=== PATIENT | male | born 1960 | race Caucasian/White ===

== ENCOUNTER 2018-03-13 17:10 | Emergency (ER) | payer OTHER, SELFPAY ==
--- NOTE | 2018-03-13 17:18 | DI.CT.S_ITS ---
PROCEDURE: CT HEAD/BRAIN WO CON INDICATIONS: Confusion. TECHNIQUE: Noncontrast 4.5 mm thick angled axial sections acquired from the foramen magnum to the vertex, with coronal and sagittal reformats. For radiation dose reduction, the following was used: automated exposure control, adjustment of mA and/or kV according to patient size. COMPARISON: None. FINDINGS: Image quality: Excellent. CSF spaces: Basal cisterns are patent. No extra-axial fluid collections. Ventricles are normal in size and shape. Brain: No midline shift. No intracranial masses or hemorrhage. Castrejon-white matter interface is normal. No vascular calcifications are noted. Skull and face: Calvarium and visualized facial bones are intact, without suspicious lesions. Sinuses: Visualized sinuses and mastoids are clear. IMPRESSION: No acute intracranial abnormality. Dictated by: Elvin De Jesus M.D. on 03/13/2018 at 19:41 Approved by: Elvin De Jesus M.D. on 03/13/2018 at 19:49
--- NOTE | 2018-03-13 17:20 | DI.RAD.S_ITS ---
PROCEDURE: XR CHEST 1V INDICATIONS: confusion TECHNIQUE: One view of the chest was acquired. COMPARISON: None. FINDINGS: Surgical changes and devices: None. Lungs and pleura: No pleural effusions or pneumothorax. Lungs are clear. Mediastinum: Mediastinal contours appear widened, although this may be due to patient rotation and anteroposterior imaging technique. There is mild widening of the cardiac silhouette. Bones and chest wall: Cortical irregularity of the posterior aspect of the right sixth rib noted. IMPRESSION: #1. Widening of the mediastinal silhouette, which may be due to patient rotation and anteroposterior imaging technique, but consider dedicated PA and lateral chest radiographs if there is concern for mediastinal pathology. #2. Mild widening of the cardiac silhouette, which can be seen with cardiomegaly or pericardial effusion. #3. Cortical irregularity of the posterior right sixth rib, which may represent an age indeterminate fracture. Correlation with point tenderness suggested. Dictated by: Elvin De Jesus M.D. on 03/13/2018 at 19:49 Approved by: Elvin De Jesus M.D. on 03/13/2018 at 19:54
[2018-03-13 17:28] VITALS: BP 153/103; PULSE 75; RESP 16; TEMP 36.9; O2SAT 98
[2018-03-13 18:01] LABS: Add Manual Diff / Slide Review NO; Basophils Percent Auto 1.1 % (0-2); Eosinophils Percent Auto 2.1 % (2-4); Hematocrit 44.1 % (41-53); Hemoglobin 15.4 g/dL (13.5-17.5); Lymphocytes Percent Auto 17.5 % (25-40); Mean Corpuscular HGB Conc 34.8 % (30-36); Mean Corpuscular Hemoglobin 33.4 PG (26-34); Mean Corpuscular Volume 95.9 fL (80-100); Monocytes Percent Auto 7.8 % (3-14); Neutrophils Absolute Auto 5200 /uL (1500-7000); Neutrophils Percent Auto 71.5 % (50-75); Platelet Count 278 X10^3/uL (150-400); Red Cell Distribution Width 13.5 % (11.6-14.8); White Blood Cell Count 7.3 X10^3/uL (4.5-11.0)
[2018-03-13] MEDS: SODIUM CHLORIDE 0.9% 1,000 ML 1000 ML IV (18:15)
[2018-03-13 18:17] LABS: Creatine Kinase 100 U/L (55-170); Lactate (Lactic Acid) 0.7 mmol/L (0.7-2.1); Lipase 180 U/L (23-300)
[2018-03-13 18:18] LABS: Alanine Aminotransferase 55 IU/L (21-72); Albumin 4.5 g/dL (3.5-5.0); Albumin Globulin Ratio 1.5 (1.0-2.8); Alkaline Phosphatase 80 U/L (38-126); Aspartate Aminotransferase 35 IU/L (17-59); Bilirubin Total 0.4 mg/dL (0.2-1.3); Blood Urea Nitrogen 20 mg/dL (9-20); Calcium 9.9 mg/dL (8.4-10.2); Carbon Dioxide 25 mmol/L (22-32); Chloride 107 mmol/L (98-107); Estimated Glomerular Filt Rate > 60.0 mL/min (>60); Glucose 100 mg/dL (70-100); HEMOLYSIS < 15 (0-50); Potassium 4.1 mmol/L (3.4-5.1); Sodium 143 mmol/L (137-145); Total Protein 7.5 g/dL (6.3-8.2)
[2018-03-13 18:30] LABS: Troponin I < 0.012 ng/mL (0.01-0.034)
[2018-03-13 18:36] LABS: Urine Amphetamines Negative (Negative); Urine Barbiturates Negative (Negative); Urine Benzodiazepines Negative (Negative); Urine Cocaine Negative (Negative); Urine MDMA Negative (Negative); Urine Methadone Negative (Negative); Urine Methamphetamines Negative (Negative); Urine Morphine/Opi cutoff 2000 Negative (Negative); Urine Oxycodone Negative (Negative); Urine Phencyclidine Negative (Negative); Urine Tetrahydrocannabinol Negative (Negative); Urine Tricyclic Antidepressant Negative (Negative)
--- NOTE | 2018-03-13 18:41 | ED_ITS ---
HPI - Neuro Symptoms/Deficit General Chief Complaint: Neuro Symptoms/Deficit Stated Complaint: memory loss Time Seen by Provider: 03/13/18 17:15 Source: patient, family and EMS Mode of arrival: EMS Limitations: no limitations History of Present Illness HPI Narrative: Patient is a 57-year-old male who presents with sudden onset of confusion. He says that he does not remember what has happened earlier today although his memory does seem to be coming back. 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 woke up he chops some wood is went back to sleep. I then he woke up and could not remember things. He was speaking to his significant other at the time. He had no facial drooping no difficulty with words no unilateral weakness no visual changes. It was simply confusion and could not remember. It is now seeming to be improved. Timing confirmed by: spouse On Anticoagulants: No Review of Systems Review of Systems GENERAL: Denies chills, fatigue, malaise, fever, sweats, travel HEENT: Denies sinus pain, ear pain, sore throat, difficulty swallowing, neck pain RESPIRATORY: Denies dyspnea, cough, wheezing, hemoptysis, sputum. CARDIOVASCULAR: Denies chest pain, palpitations, orthopnea, edema GASTROINTESTINAL: Denies nausea, vomiting, abdominal pain, diarrhea, constipation, melena. : Denies dysuria, frequency, incontinence, hematuria, urinary retention, flank pain. MUSCULOSKELETAL: Denies weakness, joint pain, or bony pain SKIN: No rash, no erythema, no pruritus NEUROLOGIC: See HPI PSYCHIATRIC: No concerning psychosocial issues. 12 point review of systems is negative except for those stated above and HPI PENDING SALE TO [facility] Medical History Hypertension (Acute) Social History alcohol intake: current Exam Initial Vital Signs Initial Vital Signs: Vital Signs Temperature 98.4 F 03/13/18 17:28 Pulse Rate 75 03/13/18 17:28 Respiratory Rate 16 03/13/18 17:28 Blood Pressure 153/103 H 03/13/18 17:28 Pulse Oximetry 98 03/13/18 17:28 GENERAL: Well-appearing, well-nourished and in no acute distress. HEENT: Head atraumatic,EOMI, pupils reactive, face symmetric, neck is supple no meningeal signs CARDIOVASCULAR: Regular rate and rhythm without murmurs, rubs or gallops. RESPIRATORY: Breath sounds equal bilaterally, no wheezes rales or rhonchi. ABDOMEN: Soft, nontender. Normoactive bowel sounds all 4 quadrants. No guarding or rebound. EXTREMITIES: Normal range of motion, no clubbing or edema. Neurovascularly intact NEUROLOGICAL: Alert and oriented x4.Normal gait and speech. Cranial nerves II through XII grossly intact. Good [id number], good [id number], strength equal bilaterally, no dysarthria or aphasia, sensation in tact to soft touch bilaterally, no visual changes, no facial droop SKIN: Warm, dry, no laceration, no petechiae, no rashes or lesions. Scores NIH Stroke Scale Level of Conciousness: Alert, keenly responsive Ask month/age: Answers both questions correctly. Open/close eyes, close hand: Performs both tasks correctly Best gaze horizontal: Normal Visual smith: No visual loss Facial palsy: Normal symetrical movement Left arm drift: No drift for full 10 sec Right arm drift: No drift for full 10 sec Left leg drift: No drift for full 10 sec Right leg drift: No drift for full 10 sec Limb ataxia: Absent Sensory on face/arms/legs: Normal, no sensory loss Best language: No aphasia, normal Dysarthria: Normal Extinction or inattention: No abnormality Total NIH Stroke scale score: 0 Course Orders Ordered: Discontinued Medications Sodium Chloride (Normal Saline 0.9%) 1,000 mls @ 1,000 mls/hr IV CONT BERNIE Last Infusion: 03/13/18 20:20 Dose: 0 mls/hr Admin: 03/13/18 18:15 Dose: 1,000 mls/hr Vital Signs - 8 hr 03/13/18 17:28 Temperature 98.4 F Pulse Rate 75 Respiratory Rate 16 Blood Pressure 153/103 H Pulse Oximetry 98 MDM - Neuro Symptoms/Deficit Lab Data Attestation: I reviewed the patient's lab results. Result diagrams: 03/13/18 17:48 03/13/18 17:48 Lab Results 03/13/18 03/13/18 03/13/18 Range/Units 17:48 17:48 17:48 WBC 7.3 (4.5-11.0) X10^3/uL RBC 4.60 (4.5-5.9) X10^6/uL Hgb 15.4 (13.5-17.5) g/dL Hct 44.1 (41-53) % MCV 95.9 (80-100) fL MCH 33.4 (26-34) PG MCHC 34.8 (30-36) % RDW 13.5 (11.6-14.8) % Plt Count 278 (150-400) X10^3/uL Neut % (Auto) 71.5 (50-75) % Lymph % (Auto) 17.5 L (25-40) % [place] % (Auto) 7.8 (3-14) % Eos % (Auto) 2.1 (2-4) % Baso % (Auto) 1.1 (0-2) % Neut # (Auto) 5200 (5459-0278) /uL Sodium 143 (137-145) mmol/L Potassium 4.1 (3.4-5.1) mmol/L Chloride 107 (98-107) mmol/L Carbon Dioxide 25 (22-32) mmol/L BUN 20 (9-20) mg/dL Creatinine 0.80 (0.66-1.25) mg/dL Estimated GFR > 60.0 (>60) mL/min BUN/Creatinine Ratio 25.0 H (6-22) Glucose 100 (70-100) mg/dL Lactate (0.7-2.1) mmol/L Calcium 9.9 (8.4-10.2) mg/dL Total Bilirubin 0.4 (0.2-1.3) mg/dL AST 35 (17-59) IU/L ALT 55 (21-72) IU/L Alkaline Phosphatase 80 (38-126) U/L Total Creatine Kinase 100 (55-170) U/L CK-MB (CK-2) TNP CK-MB (CK-2) Rel Index TNP Troponin I < 0.012 (0.01-0.034) ng/mL Total Protein 7.5 (6.3-8.2) g/dL Albumin 4.5 (3.5-5.0) g/dL Globulin 3.0 (1.7-4.1) g/dL Albumin/Globulin Ratio 1.5 (1.0-2.8) Lipase 180 (23-300) U/L Salicylates < 1.0 (<20) mg/dL Urine Opiates Screen (Negative) Ur Oxycodone Screen (Negative) Urine Methadone Screen (Negative) Acetaminophen < 5 L (10-30) ug/mL Ur Barbiturates Screen (Negative) U Tricyclic Antidepress (Negative) Ur Phencyclidine Scrn (Negative) Ur Amphetamines Screen (Negative) U Methamphetamines Scrn (Negative) Ur MDMA Scrn (Ecstasy) (Negative) U Benzodiazepines Scrn (Negative) Urine Cocaine Screen (Negative) U Marijuana (THC) Screen (Negative) Ethyl Alcohol < 10 mg/dL 03/13/18 03/13/18 Range/Units 17:48 18:09 WBC (4.5-11.0) X10^3/uL RBC (4.5-5.9) X10^6/uL Hgb (13.5-17.5) g/dL Hct (41-53) % MCV (80-100) fL MCH (26-34) PG MCHC (30-36) % RDW (11.6-14.8) % Plt Count (150-400) X10^3/uL Neut % (Auto) (50-75) % Lymph % (Auto) (25-40) % [place] % (Auto) (3-14) % Eos % (Auto) (2-4) % Baso % (Auto) (0-2) % Neut # (Auto) (1310-7521) /uL Sodium (137-145) mmol/L Potassium (3.4-5.1) mmol/L Chloride (98-107) mmol/L Carbon Dioxide (22-32) mmol/L BUN (9-20) mg/dL Creatinine (0.66-1.25) mg/dL Estimated GFR (>60) mL/min BUN/Creatinine Ratio (6-22) Glucose (70-100) mg/dL Lactate 0.7 (0.7-2.1) mmol/L Calcium (8.4-10.2) mg/dL Total Bilirubin (0.2-1.3) mg/dL AST (17-59) IU/L ALT (21-72) IU/L Alkaline Phosphatase (38-126) U/L Total Creatine Kinase (55-170) U/L CK-MB (CK-2) CK-MB (CK-2) Rel Index Troponin I (0.01-0.034) ng/mL Total Protein (6.3-8.2) g/dL Albumin (3.5-5.0) g/dL Globulin (1.7-4.1) g/dL Albumin/Globulin Ratio (1.0-2.8) Lipase (23-300) U/L Salicylates (<20) mg/dL Urine Opiates Screen Negative (Negative) Ur Oxycodone Screen Negative (Negative) Urine Methadone Screen Negative (Negative) Acetaminophen (10-30) ug/mL Ur Barbiturates Screen Negative (Negative) U Tricyclic Antidepress Negative (Negative) Ur Phencyclidine Scrn Negative (Negative) Ur Amphetamines Screen Negative (Negative) U Methamphetamines Scrn Negative (Negative) Ur MDMA Scrn (Ecstasy) Negative (Negative) U Benzodiazepines Scrn Negative (Negative) Urine Cocaine Screen Negative (Negative) U Marijuana (THC) Screen Negative (Negative) Ethyl Alcohol mg/dL Point of Care Testing Glucose POC [address] head: Radiologist's impression: PROCEDURE: CT HEAD/BRAIN WO CON INDICATIONS: Confusion. TECHNIQUE: Noncontrast 4.5 mm thick angled axial sections acquired from the foramen magnum to the vertex, with coronal and sagittal reformats. For radiation dose reduction, the following was used: automated exposure control, adjustment of mA and/or kV according to patient size. COMPARISON: None. FINDINGS: Image quality: Excellent. CSF spaces: Basal cisterns are patent. No extra-axial fluid collections. Ventricles are normal in size and shape. Brain: No midline shift. No intracranial masses or hemorrhage. Castrejon-white matter interface is normal. No vascular calcifications are noted. Skull and face: Calvarium and visualized facial bones are intact, without suspicious lesions. Sinuses: Visualized sinuses and mastoids are clear. IMPRESSION: No acute intracranial abnormality. Dictated by: Elvin De Jesus M.D. on 03/13/2018 at 19:41 Chest x-ray: Radiologist's impression: PROCEDURE: XR CHEST 1V INDICATIONS: confusion TECHNIQUE: One view of the chest was acquired. COMPARISON: None. FINDINGS: Surgical changes and devices: None. Lungs and pleura: No pleural effusions or pneumothorax. Lungs are clear. Mediastinum: Mediastinal contours appear widened, although this may be due to patient rotation and anteroposterior imaging technique. There is mild widening of the cardiac silhouette. Bones and chest wall: Cortical irregularity of the posterior aspect of the right sixth rib noted. IMPRESSION: #1. Widening of the mediastinal silhouette, which may be due to patient rotation and anteroposterior imaging technique, but consider dedicated PA and lateral chest radiographs if there is concern for mediastinal pathology. #2. Mild widening of the cardiac silhouette, which can be seen with cardiomegaly or pericardial effusion. #3. Cortical irregularity of the posterior right sixth rib, which may represent an age indeterminate fracture. Correlation with point tenderness suggested. Dictated by: Elvin De Jesus M.D. on 03/13/2018 at 19:49 Approved by: Elvin De Jesus M.D. on 03/13/2018 at 19:54 ECG Data Attestation: I personally reviewed and interpreted this ECG as follows: Prior ECG tracings: not available for review Interpretation: Normal sinus rhythm a rate [address] changes he does have T-wave inversion noted in lead 3 no priors to compare PVC noted. His MDM Narrative Medical decision making narrative: The patient has no focal deficits signs or symptoms of stroke. He simply presents with confusion which is now resolved. No sign of infection. He does forget some things he just forgot that he had a chest x-ray taken. He may require further outpatient workup. Patient has no chest pain no shortness of breath no pain with inspiration, no signs or symptoms of cardiomegaly or pericardial effusion. Discharge Plan Departure Patient Disposition: Home Clinical Impression: Acute metabolic encephalopathy Discharge Date/Time: 03/13/18 20:20 Interventions: ED Discharge Assessment Last Done: 03/13/18 20:28 Instructions: DI for Amnesia Activity Restrictions/Additional Instructions: *You have been diagnosed with confusion improving *What to do: At this time no sign of infection, electrolyte abnormalities no sign of stroke, unclear what cause confusion 1 *Continue to take medications as directed *Follow up with your primary care provider in 2-3 days *Return to ER if you should have worsening confusion weakness, facial droop, difficulty understanding or any new, worsening or concerning symptoms
[2018-03-13 18:43] VITALS: PULSE 72; RESP 13; O2SAT 98
[2018-03-13 19:00] LABS: Ethanol (ETOH) < 10 mg/dL
[2018-03-13 19:01] LABS: Acetaminophen < 5 ug/mL (10-30); Salicylate < 1.0 mg/dL (<20)
[2018-03-13 19:27] VITALS: BP 137/82; PULSE 63; RESP 16; O2SAT 99
[2018-03-13 20:28] VITALS: BP 129/64; PULSE 70; RESP 18; O2SAT 95
== END 2018-03-13 20:20 | disposition home or self-care (01) ==
PROVIDERS: Emergency Provider Emergency Medicine
DX: G93.41 Metabolic encephalopathy (principal)
CPT/HCPCS: 36415; 70450; 71045; 80053; 80305; 80320; 80329; 82550; 82962; 83605; 83690; 84484; 85025; 93005; 93010; 93041; 96360; 96361; 99285; 99291; G0480